=== PATIENT | female | born 1955 | race Caucasian/White ===

== ENCOUNTER 2022-07-08 13:45 | Outpatient (RCR) | payer MEDICAID, SELFPAY | END 2022-12-10 23:59 | disposition home or self-care (01) | PROVIDERS: PCP Family Medicine; Visit Provider Family Medicine | DX: M25.561 Pain in right knee (principal); G89.29 Other chronic pain; M17.11 Unilateral primary osteoarthritis, right knee; R53.1 Weakness; Z74.09 Other reduced mobility; M25.461 Effusion, right knee; Z98.890 Other specified postprocedural states; Z85.3 Personal history of malignant neoplasm of breast; Z51.89 Encounter for other specified aftercare | CPT/HCPCS: 97110; 97162 ==

== ENCOUNTER 2023-11-04 09:00 | Outpatient (RCR) | payer MEDICARE, SELFPAY | END 2023-12-27 09:14 | disposition home or self-care (01) | PROVIDERS: PCP Family Medicine; Visit Provider Physician Assistant | DX: Z96.651 Presence of right artificial knee joint (principal); Z51.89 Encounter for other specified aftercare | CPT/HCPCS: 97110; 97140; 97161; 97530 ==